=== PATIENT | male | born 1970 | race Caucasian/White ===

== ENCOUNTER 2016-09-22 10:52 | Emergency (ER) | payer BC ==
--- NOTE | ~2016-09-22 | CR229 ---
[facility] A Service of [facility] RADIOLOGY TEXT RESULTS PATIENT: LUCERO JHA LOCATION: CFTX : 70 UNIT #: [id number] AGE: [address]: Nafisa Monroy SEX: M ORDER DR: [id number] [facility]. [place], [place] [address] [id number] E MR#: [id number] Acc #: [id number] NAME: LUCERO JHA : 1970 SEX: M STUDY DATE/TIME: 09/22/2016 11:32 UNIT: [facility] ROOM: STUDY DESCRIPTION: CR Shoulder Min 2 View Lt Attending Physician: Nafisa Monroy P.A.-C. Ordering Physician: Nafisa Monroy P.A.-C. Primary Care Physician: Darien Chan M.D. MEDICAL IMAGING REPORT This report is preliminary unless electronic signature is present EXAM Left shoulder 3 views INDICATIONS Left shoulder pain since last night. COMPARISON STUDIES No comparisons. FINDINGS No fracture or dislocation. Joint spaces are preserved. Soft tissue structures are unremarkable. IMPRESSION Negative. Dictated by... Gm Shetty M.D. THIS IS AN ELECTRONICALLY VERIFIED REPORT Gm Shetty M.D. at 09/23/2016 7:51 AM ARS/pcl TD: 09/22/2016 14:53 JOB #: [id number] MEDICAL IMAGING REPORT Page 1 of 1 COPY
[~2016-09-22 10:52] MED LIST: NAPROXEN PO
== END 2016-09-22 12:15 | disposition home or self-care (01) ==
LOC: CED 10:52 → CFTX 10:52
DX: S43.402A Unspecified sprain of left shoulder joint, initial encounter (principal); R03.0 Elevated blood-pressure reading, without diagnosis of hypertension; Z87.891 Personal history of nicotine dependence; W19.XXXA Unspecified fall, initial encounter; Y92.009 Unspecified place in unspecified non-institutional (private) residence as the place of occurrence of the external cause
CPT/HCPCS: 73030; 99283

== ENCOUNTER → 2016-10-01 | Outpatient (CLI) | payer BC ==
--- NOTE | ~2016-10-01 | XA32 ---
[facility] A Service of [facility] & [facility] RADIOLOGY TEXT RESULTS PATIENT: LUCERO MENON LOCATION: CMRI : 70 UNIT #: [id number] AGE: [address]: Shawnee Bravo SEX: M ORDER DR: [id number] [facility] [address] [facility]. [place], [place] [address] [id number] O MR#: [id number] Acc #: [id number] NAME: LUCERO MENON : 1970 SEX: M STUDY DATE/TIME: 10/01/2016 14:40 UNIT: [facility] ROOM: STUDY DESCRIPTION: XA Arthrogram Shoulder Lt Attending Physician: Shawnee Bravo P.A.-C. Referring Physician: Shawnee Bravo P.A.-C. Ordering Physician: Shawnee Bravo P.A.-C. Primary Care Physician: Darien Chan M.D. MEDICAL IMAGING REPORT This report is preliminary unless electronic signature is present EXAMINATION Left shoulder arthrogram. HISTORY Acute left shoulder strain with pain. Procedure, attendant risks and options were discussed with Mr. Menon. He understands and wishes to proceed. PROCEDURE Patient was examined fluoroscopically and an appropriate site was chosen. Skin was marked and prepped with chlorhexidine and draped. Utilizing sterile gloves and under fluoroscopic guidance, a 20-gauge needle was inserted into the glenohumeral joint. Approximately 12 mL of contrast with 0.1 mL of gadolinium was injected. Needle was removed. Hemostasis achieved. Three spot radiographs were obtained. Total fluoroscopy time was 0.9 minutes. CONCLUSION Successful left shoulder arthrogram. The arthrogram itself was grossly normal. Please see the accompanying MR dictation. Dictated by... Bruno Gupta M.D. THIS IS AN ELECTRONICALLY VERIFIED REPORT Bruno Gupta M.D. at 10/03/2016 7:24 AM CARMENZA/amy TD: 10/01/2016 23:25 JOB #: [id number] MEDICAL IMAGING REPORT [facility] A Service of [facility] & [facility] RADIOLOGY TEXT RESULTS PATIENT: LUCERO MENON [facility] UNIT #: [id number] AGE: [address]: Shawnee Bravo SEX: M ORDER DR: Page 1 of 1 COPY
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
== END | disposition home or self-care (01) ==
LOC: CMRI 12:42
DX: S46.912A Strain of unspecified muscle, fascia and tendon at shoulder and upper arm level, left arm, initial encounter (principal)
CPT/HCPCS: 73040; 73222; Q9967